=== PATIENT | female | born 2000 | race Two or more races ===

== ENCOUNTER 2023-03-19 19:06 | Emergency (ER) | payer MEDICAID, OTHER ==
[~2023-03-19] VITALS: Ht 160 cm; Wt 81.5 kg
[2023-03-19] MEDS ORDERED: TETRACAINE HCL 0.5% OPTH(EYE) SOLN 4ML RIGHTEYE ONE (19:30)
[2023-03-19] MEDS ORDERED: AZIT4SOL RIGHTEYE (20:39)
[2023-03-19] MEDS ORDERED: HYDR-4902 PO (20:39)
[2023-03-19] MEDS ORDERED: IBUP-1455 PO (20:39)
[2023-03-19 22:01] VITALS: BP 120/65
== END 2023-03-19 22:03 | disposition home or self-care (01) ==
LOC: ER 19:06
DX: S05.01XA Injury of conjunctiva and corneal abrasion without foreign body, right eye, initial encounter (principal); X58.XXXA Exposure to other specified factors, initial encounter; Y93.89 Activity, other specified; Y92.89 Other specified places as the place of occurrence of the external cause; Y99.8 Other external cause status